=== PATIENT | female | born 1995 | race Caucasian/White ===

== ENCOUNTER 2020-08-14 04:54 | Inpatient (IN) ==
[2020-08-14] MEDS ORDERED: ONDANSETRON 4 MG/2 ML VIAL IV PRN ×2 (05:14→08:12)
[2020-08-14] MEDS ORDERED: LACTATED RINGERS 1,000 ML IV ONE (05:14)
[2020-08-14] MEDS ORDERED: ONDANSETRON 4 MG/2 ML VIAL IV ONE (05:17)
[2020-08-14] MEDS ORDERED: NALOXONE 0.4 MG/ML VIAL IV PRN (05:17)
[2020-08-14] MEDS ORDERED: CITRIC ACID/SODIUM CITRATE 30 ML UDCUP PO ONE (05:17)
[2020-08-14] MEDS ORDERED: ePHEDrine 50 MG/ML VIAL IV PRN (05:17)
[2020-08-14] MEDS ORDERED: PROMETHAZINE 25 MG/1 ML VIAL IM ONE (05:17)
[2020-08-14] MEDS ORDERED: FAMOTIDINE 20 MG/2 ML VIAL IV ONE (05:17)
[2020-08-14] MEDS ORDERED: hydrOXYzine HCL 25 MG/1 ML VIAL IM PRN (05:17)
[2020-08-14] MEDS ORDERED: diphenhydrAMINE 50 MG/1 ML VIAL IV PRN ×2 (05:17)
[2020-08-14] MEDS ORDERED: fentaNYL 2 MCG/ROPIV 0.2% EPID 100 ML EPIDURAL SCH (05:30)
[2020-08-14 05:34] LABS: Basophils % 0.3 % (0.0-0.8); Eosinophils # 0.1 10*3/uL (0.0-0.87); Eosinophils % 0.4 % (0.00-10.9); Hematocrit 30.6 VOL% (35.7-47.0); Hemoglobin 9.9 GM/DL (12.0-16.0); Immature Granulocytes % 5.3 %; Immature Granulocytes Absolute 0.73 #; Lymphocytes # 2.1 10*3/uL (1.4-4.0); Lymphocytes % 14.9 % (21.3-54.2); Mean Corpuscular HGB Conc 32.4 GM/DL (32-36); Mean Corpuscular Volume 97.5 FL (87-102); Mean Platelet Volume 10.6 FL (9.6-12.0); Monocytes % 8.9 % (1.7-12.7); NRBC # 0.21 10*3/uL; Neutrophils % 70.2 % (38.7-73.9); Platelet Count 231 T/CUMM (130-400); Red Blood Count 3.14 MC/CUMM (3.8-5.5); Red Cell Distribution Width 14.8 % (9.3-17.3); White Blood Count 13.9 T/CUMM (4-12)
[2020-08-14] MEDS ORDERED: AMPICILLIN INJ 2,000 MG in SODIUM CHLORIDE 0.9% 100 ML IV ONE (05:53)
[2020-08-14] MEDS ORDERED: AMPICILLIN 2,000 MG VIAL ONE (05:59)
[2020-08-14 06:01] LABS: Bilirubin,Urine Negative (Negative); Blood, Urine Moderate mg/dL (Negative); Glucose,Urine (UA) Negative (Negative); Ketones,Urine Negative (Negative); Nitrite,Urine Negative (Negative); Protein,Urine Negative; RBC,Urine 1 /HPF (0-4); Squamous Epithelial Cell,Urine Occasional /HPF (0-10); Urine Appearance CLEAR (Clear); Urine Color Straw (Yellow); Urine Specific Gravity 1.004 (1.001-1.035); Urine Urobilinogen < 2.0 EU/DL (0.2-1.0)
[2020-08-14 06:01] LABS: Albumin 2.2 G/DL (3.4-5.0); Bilirubin,Total 0.8 MG/DL (0.2-1.0); Calcium 8.6 MG/DL (8.5-10.1); Osmolality,Calculated 276.4 MOS/KG (273-304); Potassium 3.3 MMOL/L (3.5-5.1); Total Protein 5.4 G/DL (6.4-8.2)
[2020-08-14] MEDS: LACTATED RINGERS 1,000 ML IV SCH (06:08)
[2020-08-14 06:16] LABS: Barbiturates Screen,Urine Negative (Negative); Benzodiazepines Screen,Urine Negative (Negative); Cannabinoid Screen,Urine Positive (Negative); Opiate Screen,Urine Negative (Negative); Phencyclidine Screen,Urine Negative (Negative)
[2020-08-14 06:59] LABS: Rubella Antibody IgG Result Reactive (NonReactive)
[2020-08-14] MEDS ORDERED: OXYTOCIN/LR 20 UNIT/1,000 ML BAG IV ONE ×3 (07:17→11:56)
[2020-08-14] MEDS ORDERED: miSOPROStoL 200 MCG TABLET ONE (07:17)
[2020-08-14] MEDS ORDERED: METHYLERGONOVINE 0.2 MG/1 ML AMP ONE (07:18)
[2020-08-14] MEDS ORDERED: CARBOPROST TROMETHAMINE 250 MCG/ML AMP IM ONE (07:18)
[2020-08-14 07:56] LABS: Lymphocytes 15 % (20-55); Segmented Neutrophils 81 % (50-85); Total Cells Counted 100
[2020-08-14 07:57] LABS: Platelet Estimate Adequate
[2020-08-14 08:10] LABS: Cord Arterial Blood HCO3 26.2 MMOL/L
[2020-08-14] MEDS ORDERED: DIPH/TET/ACEL PERT BOOSTER VACCINE 0.5 ML VIAL IM ONE (08:12)
[2020-08-14] MEDS ORDERED: WITCH HAZEL PADS 100/JAR TOP PRN (08:12)
[2020-08-14] MEDS ORDERED: LANOLIN 50% CREAM 0.3 OZ TUBE TOP PRN (08:12)
[2020-08-14] MEDS ORDERED: BENZOCAINE 20%/MENTHOL 0.5% SPRAY 56 GM CAN TOP PRN (08:12)
[2020-08-14] MEDS ORDERED: ACETAMINOPHEN 325 MG TABLET PO PRN (08:12)
[2020-08-14] MEDS ORDERED: IBUPROFEN 800 MG TABLET PO PRN (08:12)
[2020-08-14] MEDS ORDERED: MEASLES/MUMPS/RUBELLA VACCINE 0.5 ML VIAL SUBCUT ONE (08:12)
[2020-08-14] MEDS ORDERED: HYDROCORTISONE 2.5% RECTAL CREAM 30 GM TUBE TOP PRN (08:12)
[2020-08-14] MEDS ORDERED: oxyCODONE/ACETAMINOPHEN 5-325 MG TABLET PO PRN ×2 (08:12)
[2020-08-14] MEDS ORDERED: RHO(D) IMMUNE GLOBULIN 300 MCG SYRINGE IM ONE (08:12)
[2020-08-14] MEDS ORDERED: BISACODYL 10 MG SUPP RECTAL PRN (08:12)
[2020-08-14 08:17] LABS: Cord Venous Blood HCO3 23.5 MMOL/L; Cord Venous Blood PCO2 43.1 MMHG; Cord Venous Blood PO2 28.3 MMHG
[2020-08-14] MEDS ORDERED: MAGNESIUM SULF RIDER 4 GM/100 ML PREMIX IV ONE (08:47)
[2020-08-14] MEDS ORDERED: LABETALOL 100 MG/20 ML VIAL IV PRN ×2 (08:47)
[2020-08-14] MEDS ORDERED: LABETALOL 20 MG/4 ML SYRINGE IV PRN (08:47)
[2020-08-14] MEDS ORDERED: MAGNESIUM SULF DRIP 40 GM/1,000 ML ML IV SCH (09:00)
[2020-08-14 09:36] LABS: INR 0.9; PT Patient Result 10.3 SECS (10.5-12.0); Partial Thromboplastin Time 30.4 SECS (23.9-33.8)
[2020-08-14] MEDS ORDERED: AMPICILLIN INJ 1,000 MG in SODIUM CHLORIDE 0.9% 100 ML IV SCH (10:00)
[2020-08-14] MEDS: DOCUSATE SODIUM 100 MG CAPSULE PO SCH (21:07)
[2020-08-15] MEDS: LACTATED RINGERS 1,000 ML IV SCH ×3 (03:04→03:05)
[2020-08-15 05:52] LABS: Basophils % 0.3 % (0.0-0.8); Eosinophils # 0.1 10*3/uL (0.0-0.87); Eosinophils % 0.4 % (0.00-10.9); Hematocrit 31.7 VOL% (35.7-47.0); Hemoglobin 11.1 GM/DL (12.0-16.0); Immature Granulocytes % 1.8 %; Immature Granulocytes Absolute 0.25 #; Lymphocytes # 2.4 10*3/uL (1.4-4.0); Mean Corpuscular Volume 92.2 FL (87-102); Mean Platelet Volume 10.8 FL (9.6-12.0); NRBC # 0.05 10*3/uL; Neutrophils % 74.5 % (38.7-73.9); Platelet Count 268 T/CUMM (130-400); Red Blood Count 3.44 MC/CUMM (3.8-5.5); Red Cell Distribution Width 14.4 % (9.3-17.3); White Blood Count 14.3 T/CUMM (4-12)
[2020-08-15] MEDS: DOCUSATE SODIUM 100 MG CAPSULE PO SCH ×2 (15:31→21:50)
[2020-08-16 08:23] VITALS: BP 129/66
[2020-08-16] MEDS: DOCUSATE SODIUM 100 MG CAPSULE PO SCH (09:15)
== END 2020-08-16 14:20 | disposition home or self-care (01) | DRG 560 ==
LOC: N.LDOUT 04:54 → N.LD 04:56 → N.OB 08-15 16:38
PROVIDERS: ADMIT Obstetrics & Gynecology; ATTEND Obstetrics & Gynecology

== ENCOUNTER 2021-12-04 10:12 | Inpatient (IN) ==
[2021-12-04 10:41] LABS: Bacteria,Urine Occasional /HPF (Few); Bilirubin,Urine Negative (Negative); Blood, Urine Small mg/dL (Negative); Glucose,Urine (UA) Negative (Negative); Ketones,Urine Negative (Negative); Nitrite,Urine Negative (Negative); Protein,Urine Negative (Negative); RBC,Urine <1 /HPF (0-4); Urine Appearance CLEAR (Clear); Urine Color Straw (Yellow); Urine Specific Gravity 1.001 (1.001-1.035); Urine Urobilinogen < 2.0 eU/dL (<2.0)
[2021-12-04 11:28] LABS: Barbiturates Screen,Urine Negative (Negative); Benzodiazepines Screen,Urine Negative (Negative); Cannabinoid Screen,Urine Negative (Negative); Opiate Screen,Urine Negative (Negative); Phencyclidine Screen,Urine Negative (Negative)
[2021-12-04] MEDS ORDERED: METHYLERGONOVINE 0.2 MG/1 ML AMP IM PRN (12:01)
[2021-12-04] MEDS ORDERED: miSOPROStoL 200 MCG TABLET RECTAL PRN (12:01)
[2021-12-04] MEDS ORDERED: TRANEXAMIC ACID 1,000 MG in SODIUM CHLORIDE 0.9% 100 ML IV PRN (12:01)
[2021-12-04] MEDS ORDERED: ONDANSETRON 4 MG/2 ML VIAL IV PRN ×2 (12:01→16:20)
[2021-12-04] MEDS ORDERED: OXYTOCIN/LR 20 UNIT/1,000 ML BAG IV ONE ×2 (12:01→16:20)
[2021-12-04] MEDS ORDERED: MEPERIDINE 50 MG/1 ML VIAL IV PRN (12:01)
[2021-12-04] MEDS ORDERED: CARBOPROST TROMETHAMINE 250 MCG/ML AMP IM PRN (12:01)
[2021-12-04] MEDS ORDERED: NALOXONE 0.4 MG/ML VIAL IV PRN (12:19)
[2021-12-04 12:21] LABS: Basophils % 0.2 % (0.0-0.8); Eosinophils % 0.3 % (0.00-10.9); Hematocrit 30.8 VOL% (35.7-47.0); Hemoglobin 10.4 GM/DL (12.0-16.0); Immature Granulocytes % 0.8 %; Immature Granulocytes Absolute 0.09 #; Lymphocytes # 1.3 10*3/uL (1.4-4.0); Lymphocytes % 11.7 % (21.3-54.2); Mean Corpuscular HGB Conc 33.8 GM/DL (32-36); Mean Corpuscular Volume 98.7 FL (87-102); Monocytes # 0.8 10*3/uL (0.11-0.8); Monocytes % 7.3 % (1.7-12.7); Neutrophils % 79.7 % (38.7-73.9); Platelet Count 226 T/CUMM (130-400); Red Blood Count 3.12 MC/CUMM (3.8-5.5); Red Cell Distribution Width 14.5 % (9.3-17.3); White Blood Count 11.5 T/CUMM (4-12)
[2021-12-04] MEDS ORDERED: OXYTOCIN/LR 20 UNIT/1,000 ML BAG IV SCH (12:30)
[2021-12-04] MEDS ORDERED: LACTATED RINGERS 1,000 ML IV SCH (12:30)
[2021-12-04] MEDS: AMPICILLIN INJ 2,000 MG in SODIUM CHLORIDE 0.9% 100 ML IV SCH ×2 (12:37→18:23)
[2021-12-04 12:43] LABS: Alanine Aminotransferase 59 U/L (13-56); Albumin 2.8 G/DL (3.4-5.0); Alkaline Phosphatase 165 U/L (45-117); Aspartate Amino Transferase 50 U/L (0-37); Bilirubin,Total < 0.39 MG/DL (0.20-1.00); Blood Urea Nitrogen 5 MG/DL (7-18); Calcium 8.5 MG/DL (8.5-10.1); Carbon Dioxide 21 MMOL/L (21-32); Chloride 108 MMOL/L (98-107); Glucose 87 MG/DL (74-106); Osmolality,Calculated 268.8 MOS/KG (273-304); Potassium 3.5 MMOL/L (3.5-5.1); Sodium 137 MMOL/L (136-145); Total Protein 6.4 G/DL (6.4-8.2)
[2021-12-04] MEDS ORDERED: CITRIC ACID/SODIUM CITRATE 30 ML UDCUP PO ONE (13:30)
[2021-12-04] MEDS ORDERED: fentaNYL 2 MCG/ROPIV 0.2% EPID 100 ML EPIDURAL SCH (13:30)
[2021-12-04] MEDS ORDERED: ePHEDrine 50 MG/ML VIAL IV PRN (13:30)
[2021-12-04] MEDS ORDERED: diphenhydrAMINE 50 MG/1 ML VIAL IV PRN ×2 (13:30)
[2021-12-04] MEDS ORDERED: LACTATED RINGERS 1,000 ML IV ONE (13:30)
[2021-12-04] MEDS ORDERED: hydrOXYzine HCL 25 MG/1 ML VIAL IM PRN (13:30)
[2021-12-04] MEDS ORDERED: FAMOTIDINE 20 MG/2 ML VIAL IV ONE (13:30)
[2021-12-04] MEDS ORDERED: PROMETHAZINE 25 MG/1 ML VIAL IM ONE (13:30)
[2021-12-04 14:23] LABS: HIV Antigen/Antibody Result Nonreactive (Nonreactive); Hepatitis B Surface Ag Quant < 0.10 Index; Hepatitis B Surface Ag Result Non-Reactive (NonReactive); Rubella Antibody IgG Result Reactive (NonReactive)
[2021-12-04] MEDS ORDERED: TRANEXAMIC ACID 1,000 MG/10 ML VIAL ONE (15:01)
[2021-12-04] MEDS ORDERED: SODIUM CHLORIDE 0.9% 0 ML IV ONE (15:01)
[2021-12-04] MEDS ORDERED: miSOPROStoL 200 MCG TABLET ONE (15:01)
[2021-12-04] MEDS ORDERED: METHYLERGONOVINE 0.2 MG/1 ML AMP ONE (15:01)
[2021-12-04] MEDS ORDERED: CARBOPROST TROMETHAMINE 250 MCG/ML AMP IM ONE (15:02)
[2021-12-04 15:50] LABS: Bacteria,Urine Occasional /HPF (Few); Bilirubin,Urine Negative (Negative); Blood, Urine Small mg/dL (Negative); Glucose,Urine (UA) Negative (Negative); Ketones,Urine 5 mg/dL (Negative); Mucus,Urine Occasional /LPF (Occasional); Nitrite,Urine Negative (Negative); Protein,Urine 30 mg/dL (Negative); RBC,Urine 4 /HPF (0-4); Squamous Epithelial Cell,Urine Occasional /HPF (0-10); Urine Appearance CLEAR (Clear); Urine Color Yellow (Yellow); Urine Specific Gravity 1.023 (1.001-1.035); Urine Urobilinogen < 2.0 eU/dL (<2.0)
[2021-12-04] MEDS ORDERED: MEASLES/MUMPS/RUBELLA VACCINE 0.5 ML VIAL SUBCUT ONE (16:20)
[2021-12-04] MEDS ORDERED: oxyCODONE/ACETAMINOPHEN 5-325 MG TABLET PO PRN (16:20)
[2021-12-04] MEDS ORDERED: HYDROCORTISONE 2.5% RECTAL CREAM 30 GM TUBE TOP PRN (16:20)
[2021-12-04] MEDS ORDERED: LANOLIN 50% CREAM 0.3 OZ TUBE TOP PRN (16:20)
[2021-12-04] MEDS ORDERED: ACETAMINOPHEN 325 MG TABLET PO PRN (16:20)
[2021-12-04] MEDS ORDERED: BISACODYL 10 MG SUPP RECTAL PRN (16:20)
[2021-12-04] MEDS ORDERED: WITCH HAZEL PADS 100/JAR TOP PRN (16:20)
[2021-12-04] MEDS ORDERED: DIPH/TET/ACEL PERT BOOSTER VACCINE 0.5 ML VIAL IM ONE (16:20)
[2021-12-04] MEDS ORDERED: RHO(D) IMMUNE GLOBULIN 300 MCG SYRINGE IM ONE (16:20)
[2021-12-04] MEDS ORDERED: BENZOCAINE 20%/MENTHOL 0.5% SPRAY 56 GM CAN TOP PRN (16:20)
[2021-12-04 16:31] LABS: Cord Venous Blood HCO3 24.2 MMOL/L; Cord Venous Blood PCO2 44.8 MMHG; Cord Venous Blood PO2 27.9
[2021-12-04 16:32] LABS: Cord Arterial Blood HCO3 23.2 MMOL/L
[2021-12-04] MEDS: IBUPROFEN 800 MG TABLET PO PRN (20:08)
[2021-12-04] MEDS: oxyCODONE/ACETAMINOPHEN 5-325 MG TABLET PO PRN (23:44)
[2021-12-05 06:41] LABS: Basophils % 0.2 % (0.0-0.8); Eosinophils # 0.1 10*3/uL (0.0-0.87); Eosinophils % 0.8 % (0.00-10.9); Hematocrit 26.8 VOL% (35.7-47.0); Immature Granulocytes Absolute 0.24 #; Lymphocytes # 1.9 10*3/uL (1.4-4.0); Lymphocytes % 15.9 % (21.3-54.2); Mean Corpuscular HGB Conc 33.6 GM/DL (32-36); Mean Corpuscular Volume 98.2 FL (87-102); Mean Platelet Volume 10.4 FL (9.6-12.0); Monocytes # 0.9 10*3/uL (0.11-0.8); Neutrophils % 74.1 % (38.7-73.9); Platelet Count 211 T/CUMM (130-400); Red Blood Count 2.73 MC/CUMM (3.8-5.5); Red Cell Distribution Width 14.4 % (9.3-17.3); White Blood Count 12.2 T/CUMM (4-12)
[2021-12-05] MEDS: IBUPROFEN 800 MG TABLET PO PRN (08:34)
[2021-12-05] MEDS: DOCUSATE SODIUM 100 MG CAPSULE PO SCH ×2 (08:34→20:31)
[2021-12-05] MEDS: oxyCODONE/ACETAMINOPHEN 5-325 MG TABLET PO PRN ×2 (10:51→20:31)
[2021-12-06] MEDS: DOCUSATE SODIUM 100 MG CAPSULE PO SCH (08:59)
[2021-12-06] MEDS: oxyCODONE/ACETAMINOPHEN 5-325 MG TABLET PO PRN (09:02)
[2021-12-06 12:12] VITALS: BP 134/69
== END 2021-12-06 13:10 | disposition home or self-care (01) | DRG 560 ==
LOC: N.LDOUT 10:12 → N.LD 10:14 → N.OB 22:00
PROVIDERS: ADMIT Obstetrics & Gynecology; ATTEND Obstetrics & Gynecology